=== PATIENT | female | born 1930 | race Caucasian/White ===

== ENCOUNTER 2016-08-15 17:20 | Inpatient (IN) | payer OTHER, MEDICAID ==
--- NOTE | 2016-08-15 17:19 | EDPHY ---
H & P Time Seen by Provider: 08/15/16 17:20 HPI/ROS: CHIEF COMPLAINT: Cough and weakness HISTORY OF PRESENT ILLNESS: Patient is at 3 weeks of cough which has become worse in the past couple of days associated with weakness and extreme fatigue. She has very mild shortness of breath but no chest pain. Associated with several days of watery diarrhea but no blood or melena. Cough is not better worse with anything. REVIEW OF SYSTEMS: Eye: no change in vision ENT: no sore throat Cardiac: no chest pain or syncope Pulmonary: HPI Abdomen: no vomiting, no abdominal pain, has had diarrhea Musculoskeletal: no back pain Skin: no rash Neuro: no headache Constitutional: no fever : Usually wears a diaper but was incontinent today which is unusual for her. A comprehensive 10 point review of systems is otherwise negative aside from elements mentioned in the history of present illness. PAST MEDICAL HISTORY: Includes hypertension, colon cancer, asthma Social history: Nonsmoker General Appearance: Alert and conversant, cooperative. Eyes: No scleral icterus. ENT, Mouth: Normal mucous membranes. Respiratory: Bilateral rhonchi wheezing and rales. Cardiovascular: Regular rate and rhythm. Gastrointestinal: Abdomen is soft and non tender. Neurological: Alert and oriented x3. Normally conversant. Face symmetric, normal movement and sensation in all extremities. Skin: Warm and dry, no rashes. Musculoskeletal: No peripheral edema and no joint swelling. No calf tenderness. Psychiatric: Not agitated. Emergency Department course/MDM: Chest x-ray, labs to include CBC and chemistries, influenza, sepsis screening , UA. 1818: Discussed results with patient and her daughter. Oral Tamiflu 75 mg and nebulizer. Admission for supportive care with hypoxemia and severe weakness. Does not meet SIRS criteria in the ED. Needs to be admitted for generalized weakness, hypoxemia. Constitutional: Initial Vital Signs Temperature (C) 36.6 C 08/15/16 17:27 Heart Rate 79 08/15/16 17:27 Respiratory Rate 16 08/15/16 17:27 Blood Pressure 102/64 08/15/16 17:27 O2 Sat (%) 90 L 08/15/16 17:27 O2 Delivery Mode Room Air Allergies/Adverse Reactions: aspirin Allergy (Verified 05/09/14 10:48) Penicillins Allergy (Verified 05/09/14 10:48) Home Medications: Medication Instructions Recorded Acetaminophen [Tylenol ES 500 mg 1,000 mg PO BID 11/02/15 (*)] Cholecalciferol Vit D3 [Vitamin D3 2,000 units PO BID 11/02/15 (*)] Cholestyramine (with Sugar) 4 gm PO DAILY 11/02/15 [Cholestyramine Packet] Cromolyn Sodium [Nasalcrom] 1 spray EACHNARE BID PRN 11/02/15 Denosumab [Prolia] 60 mg SQ Q180D 11/02/15 Diclofenac Sodium [Voltaren Gel 1 montrell TP HS PRN 11/02/15 (*)] Fluticasone Hfa 44 Mcg [Flovent 44 2 puffs IH BID 11/02/15 MCG Hfa MDI (*)] Lisinopril [Zestril 10 mg (*)] 10 mg PO DAILY 11/02/15 Triamterene/Hydrochlorothiazid 1 each PO DAILY 11/02/15 [Triamterene-Hctz 37.5-25 mg Cp] Vit C/Zeferino AC/Lut/Copper/Znox 1 each PO BID 11/02/15 [Preservision Lutein Softgel] Famotidine [Pepcid 20 MG (*)] 20 mg PO BID #60 tab 11/04/15 Metformin HCl 250 mg PO DAILY 08/15/16 Medical Decision Making - Diagnostics EKG Interpretation: 12-lead EKG interpreted by me; official reading is in trace master. My interpretation is sinus rhythm with PAC and a right bundle branch block. Imaging: Chest x-ray reviewed with Chauncey at 1757 is negative for pneumonia Differential Diagnosis: Differential for cough and shortness of breath considered including but not limited to influenza, pneumonia, bronchitis, CHF. Consult/Admit Bed Type: Dr. Kohler 1652 - Data Points Laboratory Results: Laboratory Results 08/15/16 17:40 08/15/16 17:40 08/15/16 08/15/16 08/15/16 17:45 17:40 17:40 WBC RBC Hgb Hct MCV MCH MCHC RDW Plt Count MPV Neut % (Auto) Lymph % (Auto) Beckham % (Auto) Eos % (Auto) Baso % (Auto) Nucleat RBC Rel Count Absolute Neuts (auto) Absolute Lymphs (auto) Absolute Monos (auto) Absolute Eos (auto) Absolute Basos (auto) Absolute Nucleated RBC Immature Gran % Immature Gran # PT 13.3 SEC SEC (12.0-15.0) INR 1.02 (0.83-1.16) APTT 26.9 SEC SEC (23.0-38.0) VBG Lactic Acid Sodium 133 mEq/L L mEq/L (134-144) Potassium 3.9 mEq/L mEq/L (3.5-5.2) Chloride 99 mEq/L mEq/L (97-110) Carbon Dioxide 22 mEq/l mEq/l (22-31) Anion Gap 12 mEq/L mEq/L (8-16) BUN 29 mg/dL H mg/dL (7-23) Creatinine 1.2 mg/dL H mg/dL (0.6-1.0) Estimated GFR 43 Glucose 141 mg/dL H mg/dL (70-100) Calcium 8.7 mg/dL mg/dL (8.5-10.4) Total Bilirubin 0.6 mg/dL mg/dL (0.1-1.4) Influenza Typ A,B (DFA) POSITIVE FOR FLU A H (NEGATIVE) 08/15/16 08/15/16 17:40 17:40 WBC 6.11 10^3/uL 10^3/uL (3.80-9.50) RBC 4.11 10^6/uL L 10^6/uL (4.18-5.33) Hgb 13.5 g/dL g/dL (12.6-16.3) Hct 40.9 % % (38.0-47.0) MCV 99.5 fL fL (81.5-99.8) MCH 32.8 pg pg (27.9-34.1) MCHC 33.0 g/dL g/dL (32.4-36.7) RDW 11.9 % % (11.5-15.2) Plt Count 167 10^3/uL 10^3/uL (150-400) MPV 9.4 fL fL (8.7-11.7) Neut % (Auto) 69.6 % % (39.3-74.2) Lymph % (Auto) 20.0 % % (15.0-45.0) Beckham % (Auto) 9.2 % % (4.5-13.0) Eos % (Auto) 0.5 % L % (0.6-7.6) Baso % (Auto) 0.2 % L % (0.3-1.7) Nucleat RBC Rel Count 0.0 % % (0.0-0.2) Absolute Neuts (auto) 4.26 10^3/uL 10^3/uL (1.70-6.50) Absolute Lymphs (auto) 1.22 10^3/uL 10^3/uL (1.00-3.00) Absolute Monos (auto) 0.56 10^3/uL 10^3/uL (0.30-0.80) Absolute Eos (auto) 0.03 10^3/uL 10^3/uL (0.03-0.40) Absolute Basos (auto) 0.01 10^3/uL L 10^3/uL (0.02-0.10) Absolute Nucleated RBC 0.00 10^3/uL 10^3/uL (0-0.01) Immature Gran % 0.5 % % (0.0-1.1) Immature Gran # 0.03 10^3/uL 10^3/uL (0.00-0.10) PT INR APTT VBG Lactic Acid 1.9 mmol/L mmol/L (0.7-2.1) Sodium Potassium Chloride Carbon Dioxide Anion Gap BUN Creatinine Estimated GFR Glucose Calcium Total Bilirubin Influenza Typ A,B (DFA) Medications Given: Discontinued Medications Albuterol (Proventil Neb) 3 ml IH EDNOW ONE Stop: 08/15/16 18:13 Last Admin: 08/15/16 18:51 Dose: 3 ml Sodium Chloride (Ns) 1,000 mls @ 0 mls/hr IV ONCE ONE PRN Reason: Wide Open Stop: 08/15/16 18:22 Last Admin: 08/15/16 18:36 Dose: 1,000 mls Oseltamivir Phosphate (Tamiflu) 75 mg PO EDNOW ONE Stop: 08/15/16 18:14 Last Admin: 08/15/16 18:36 Dose: 75 mg Departure - Departure Disposition: [facility] Acute Clinical Impression: Influenza, Hypoxemia Condition: Good
--- NOTE | 2016-08-15 17:58 | CPEKG ---
Heart Rate: 77 RR Interval: 779 P-R Interval: 176 QRSD Interval: 126 QT Interval: 412 QTC Interval: 467 P Cromwell: 45 QRS Cromwell: 73 T Wave Cromwell: -33 EKG Severity - ABNORMAL ECG - EKG Impression: SINUS RHYTHM EKG Impression: ATRIAL PREMATURE COMPLEX EKG Impression: RIGHT BUNDLE BRANCH BLOCK Electronically Signed By: Jesse Cardenas 15-Aug-2016 20:33:01
[2016-08-15 18:00] LABS: % IMMATURE GRANULYOCYTES 0.5 % (0.0-1.1); ABSOLUTE IMMATURE GRANULOCYTES 0.03 10^3/uL (0.00-0.10); ADD DIFF? NO; ADD MORPH? NO; ADD SCAN? NO; ATYPICAL LYMPHOCYTE FLAG 30 (0-99); FRAGMENT RBC FLAG 0 (0-99); HEMATOCRIT 40.9 % (38.0-47.0); HEMOGLOBIN 13.5 g/dL (12.6-16.3); LEFT SHIFT FLG 0 (0-99); LIPEMIA HEMOLYSIS FLAG 80 (0-99); MEAN CELL HEMOGLOBIN 32.8 pg (27.9-34.1); MEAN CELL VOLUME 99.5 fL (81.5-99.8); MEAN PLATELET VOLUME 9.4 fL (8.7-11.7); PLATELET CLUMPS FLAG 0 (0-99); PLATELET COUNT 167 10^3/uL (150-400); RED BLOOD CELL COUNT 4.11 10^6/uL (4.18-5.33); RED CELL DISTRIBUTION WIDTH 11.9 % (11.5-15.2)
[2016-08-15 18:04] LABS: INR 1.02 (0.83-1.16); PROTIME(PATIENT) 13.3 SEC (12.0-15.0)
[2016-08-15 18:05] LABS: APTT 26.9 SEC (23.0-38.0)
[2016-08-15] MEDS ORDERED: ALBUTEROL 3 ML DEYVIAL IH ONE (18:12)
[2016-08-15] MEDS ORDERED: OSELTAMIVIR PHOSPHATE 75 MG CAP PO ONE (18:13)
[2016-08-15 18:16] LABS: ANION GAP 12 mEq/L (8-16); BILIRUBIN,TOTAL 0.6 mg/dL (0.1-1.4); CALCIUM 8.7 mg/dL (8.5-10.4); CARBON DIOXIDE 22 mEq/l (22-31); CHLORIDE 99 mEq/L (97-110); CREATININE 1.2 mg/dL (0.6-1.0); GLOMERULAR FILTRATION RATE 43; GLUCOSE 141 mg/dL (70-100); POTASSIUM 3.9 mEq/L (3.5-5.2); SODIUM 133 mEq/L (134-144)
[2016-08-15] MEDS ORDERED: NS 1,000 ML IV ONE (18:21)
[2016-08-15] MEDS ORDERED: ONDANSETRON 4 MG/2 ML VIAL IVP PRN (21:27)
[2016-08-15] MEDS ORDERED: ONDANSETRON DISINTEGRATING 4 MG TAB PO PRN (21:27)
[2016-08-15] MEDS ORDERED: ALBUTEROL 3 ML DEYVIAL IH PRN (21:27)
[2016-08-15] MEDS: NS 1,000 ML IV SCH (22:10)
[2016-08-15] MEDS: FAMOTIDINE 20 MG TAB PO SCH (22:10)
[2016-08-15] MEDS: BENZONATATE 100 MG CAP PO PRN (22:10)
--- NOTE | 2016-08-15 22:10 | GHP ---
[f rep st] HISTORY AND PHYSICAL DATE OF ADMISSION: 08/15/2016 CHIEF COMPLAINT: Weakness and cough. HISTORY OF PRESENT ILLNESS: The patient is an 86-year-old female with a history of hypertension and asthma, who presents to the emergency department from [facility] report ing several weeks of cough and worsening weakness and fatigue over the past several days. She denie s chest pain. She endorses mild shortness of breath. Her cough is nonproductive, but quite bothers ome. She denies abdominal pain, but endorses watery diarrhea. There has been no hematochezia or me lanotic stools. She has had no documented fevers and denies chills. In the emergency department, rigo hilton was positive for influenza A, and she was found to be mildly hypoxemic. [facility] management. PAST MEDICAL HISTORY: 1. Hypertension. 2. History of left lower extremity DVT. 3. History of breast cancer. 4. History of colon cancer. MEDICATIONS: Please see [facility] for complete updated outpatient medication list. ALLERGIES: Aspirin and penicillin. FAMILY HISTORY: Reviewed and noncontributory. SOCIAL HISTORY: The patient lives in [facility]. She denies alcohol or tobacco use. REVIEW OF SYSTEMS: A 10-point review of systems was performed and is negative except as per HPI. OBJECTIVE: VITAL SIGNS: Temperature 36.9, blood pressure 123/51, heart rate 95, respiratory rate 2 0, sats are 91% on 2 L. GENERAL: The patient is awake, alert, oriented, in no acute distress. KATINA NT: Head is atraumatic, normocephalic. Pupils equal, round, react to light. Extraocular muscles i ntact. Oropharynx is clear. Mucous membranes moist. NECK: Supple. There is no JVD. HEART: Reg ular rate and rhythm. LUNGS: Clear to auscultation bilaterally without wheezes, rales, or rhonchi. ABDOMEN: Soft, nondistended, nontender, with normoactive bowel sounds. EXTREMITIES: Without cya nosis, clubbing, or edema. NEUROLOGIC: Grossly nonfocal. LABORATORY DATA: CBC reveals normal white blood cell count. INR is normal. Lactic acid is normal. Basic metabolic panel reveals sodium 133, BUN 29, creatinine 1.2. Blood glucose 141. Influenza A is positive. Chest x-ray from the emergency department, reviewed by myself. There was no evidence of infiltrate or consolidation. No pleural effusion. DIAGNOSTIC STUDIES: EKG shows normal sinus rhythm with a right bundle branch block which was also p resent on prior EKG. ASSESSMENT/PLAN: The patient is an 86-year-old female, who presents to the hospital with weakness, fatigue, and hypoxemia. She was found to be positive for influenza, was admitted to the hospital fo r further management. 1. 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 The chantelle ent will be admitted for supportive care including oxygen. She will be started on Tamiflu which is renally dosed at 30 mg p.o. b.i.d. We may need to increase this dose if her renal function improves after hydration. She will be given q.i.d. DuoNebs and p.r.n. albuterol nebs. I do not appreciate significant wheezing, so I will defer steroids at this time. She does appear volume depleted, so wi ll give her some gentle IV fluids overnight. 2. Acute kidney injury. I suspect this is likely prerenal given her acute illness. We will gently hydrate her overnight, recheck this in the morning. If it does not improve, we can send urine stud ies for further analysis at that time. 3. Hyponatremia. This is acute. She had a sodium of 140 in June 2016. Again, I suspect this is hypovolemic hyponatremia. She has been given normal saline. We will recheck this in the morning . 4. Diarrhea. Apparently, this has been present for several days. We will check a GI pathogen pane l to rule out Clostridium difficile and other infectious etiologies. 5. Deep vein thrombosis prophylaxis: Lovenox. 6. Code status: Patient is full code. 7. Disposition: Patient is admitted to inpatient status. She will likely require greater than 48 hours hospitalization for ongoing management of her acute influenza and associated hypoxemia. /[id number]/MODL
[2016-08-15] MEDS: FLUTICASONE HFA 44 MCG MDI IH SCH (23:01)
[2016-08-16] MEDS: ACETAMINOPHEN 325 MG TAB PO PRN ×2 (04:36→15:23)
[2016-08-16 06:03] LABS: ANION GAP 7 mEq/L (8-16); CALCIUM 7.6 mg/dL (8.5-10.4); CARBON DIOXIDE 20 mEq/l (22-31); CHLORIDE 105 mEq/L (97-110); CREATININE 0.9 mg/dL (0.6-1.0); GLOMERULAR FILTRATION RATE 59; GLUCOSE 129 mg/dL (70-100); POTASSIUM 3.3 mEq/L (3.5-5.2); SODIUM 132 mEq/L (134-144)
[2016-08-16] MEDS: IPRATROPIUM/ALBUTEROL 3 ML DEYVIAL IH SCH ×4 (06:30→21:43)
[2016-08-16] MEDS ORDERED: OSELTAMIVIR 6 MG/ML UDSYR PO SCH (08:00)
[2016-08-16] MEDS: FAMOTIDINE 20 MG TAB PO SCH ×2 (09:02→20:55)
[2016-08-16] MEDS: ENOXAPARIN 30 MG/0.3 ML SYR SC SCH (09:02)
[2016-08-16] MEDS: NS 1,000 ML IV SCH ×2 (09:03→19:00)
[2016-08-16] MEDS ORDERED: CROMOLYN SODIUM EACHNARE PRN (10:13)
[2016-08-16] MEDS ORDERED: DICLOFENAC SODIUM TP PRN (10:13)
[2016-08-16] MEDS ORDERED: NON-FORMULARY NEW DRUG (Denosumab [Prolia] 60 MG) SQ SCH (10:15)
[2016-08-16] MEDS: CHOLESTYRAMINE/SUCROSE 4 GM PKT PO SCH (10:26)
[2016-08-16 10:33] LABS: COLOR YELLOW; LEUKOCYTE ESTERASE,URINE NEGATIVE (NEGATIVE); NITRITE,URINE NEGATIVE (NEGATIVE)
[2016-08-16 10:41] LABS: BACTERIA 1+ /hpf (NONE SEEN); MUCUS TRACE /lpf (NONE-1+)
[2016-08-16] MEDS: FLUTICASONE HFA 44 MCG MDI IH SCH ×2 (11:00→21:42)
[2016-08-16] MEDS: BENZONATATE 100 MG CAP PO PRN ×2 (12:20→20:56)
--- NOTE | 2016-08-16 15:39 | HOSPPROG ---
Hospitalist Progress Note Assessment/Plan: 86-year-old female presents complaints of shortness of breath and cough. This is my 1st encounter with the patient, chart reviewed. # diarrhea this is acute on chronic problem for the patient re-initiated the patient's cholestyramine continue supportive care # flu continue supportive care #Acute hypoxemic respiratory failure improved today #Acute kidney injury resolved #Hyponatremia acute on chronic stable # hypokalemia Replace orally Recheck in the a.m. #Disposition patient requires further in-hospital on management supportive care reinitiate home medications Subjective: Up to the bathroom. Complains of significant diarrhea. No specific complaints of pain. Objective: Vital Signs Temp Pulse Resp BP Pulse Ox 37.7 C 88 18 101/58 L 92 08/16/16 06:00 08/16/16 11:01 08/16/16 11:01 08/16/16 04:29 08/16/16 11:01 Microbiology 08/16/16 10:50 Gastrointestinal Tract Panel (PCR) - Final Stool No Organism Detected Laboratory Results 08/16/16 05:28 08/15/16 08/16/16 08/17/16 05:59 05:59 05:59 Intake Total 800 Output Total 450 Balance 350 PT 13.3 SEC (12.0-15.0) 08/15/16 17:40 INR 1.02 (0.83-1.16) 08/15/16 17:40 - Physical Exam Constitutional: not in pain, chronically ill appearing, obese Eyes: PERRL, anicteric sclera, EOMI Ears, Nose, Mouth, Throat: moist mucous membranes, hearing normal, ears appear normal Cardiovascular: regular rate and rhythym, No JVD, No edema Respiratory: no respiratory distress, no rales or rhonchi, reduced air movement Gastrointestinal: No tenderness, No ascites, No guarding Skin: warm, normal color, No erythema Musculoskeletal: normal joint ROM, no joint effusions, generalized weakness Neurologic: AAOx3 Psychiatric: interacting appropriately, not anxious, not encephalopathic ICD10 Worksheet Patient Problems: Problems Problem Status Onset URI, acute Acute Hyponatremia Acute Influenza Acute Hypoxemia Acute
[2016-08-16] MEDS ORDERED: POTASSIUM CL 20 MEQ/15 ML UDCUP PO ONE (15:44)
[2016-08-16] MEDS: OSELTAMIVIR 6 MG/ML UDSYR PO SCH (18:14)
[2016-08-16] MEDS: PRESERVISION LUTEIN PO SCH (20:54)
[2016-08-16] MEDS: CHOLECALCIFEROL VIT D3 1,000 UNITS TAB PO SCH (20:55)
[2016-08-16] MEDS: ACETAMINOPHEN 500 MG TAB PO SCH (20:55)
[2016-08-17] MEDS: NS 1,000 ML IV SCH ×2 (04:29→16:42)
[2016-08-17 05:22] LABS: ANION GAP 5 mEq/L (8-16); CALCIUM 7.3 mg/dL (8.5-10.4); CARBON DIOXIDE 18 mEq/l (22-31); CHLORIDE 109 mEq/L (97-110); CREATININE 0.8 mg/dL (0.6-1.0); GLOMERULAR FILTRATION RATE > 60; GLUCOSE 152 mg/dL (70-100); POTASSIUM 3.5 mEq/L (3.5-5.2); SODIUM 132 mEq/L (134-144)
[2016-08-17] MEDS: IPRATROPIUM/ALBUTEROL 3 ML DEYVIAL IH SCH ×4 (06:20→21:45)
[2016-08-17] MEDS: ACETAMINOPHEN 500 MG TAB PO SCH ×2 (07:52→20:11)
[2016-08-17] MEDS: BENZONATATE 100 MG CAP PO PRN ×2 (07:52→16:36)
[2016-08-17 08:59] LABS: HEMATOCRIT 35.1 % (38.0-47.0); HEMOGLOBIN 11.8 g/dL (12.6-16.3); MEAN CELL HEMOGLOBIN CONCENTR. 33.6 g/dL (32.4-36.7); RED BLOOD CELL COUNT 3.58 10^6/uL (4.18-5.33); RED CELL DISTRIBUTION WIDTH 11.9 % (11.5-15.2)
[2016-08-17] MEDS ORDERED: TRIAMTERENE/HCTZ 37.5/25 1 EACH CAP PO SCH (09:00)
[2016-08-17] MEDS ORDERED: LISINOPRIL 10 MG TAB PO SCH (09:00)
[2016-08-17] MEDS: metFORMIN HCL 500 MG TAB PO SCH (10:05)
[2016-08-17] MEDS: CHOLECALCIFEROL VIT D3 1,000 UNITS TAB PO SCH ×2 (10:09→20:12)
[2016-08-17] MEDS: ENOXAPARIN 30 MG/0.3 ML SYR SC SCH (10:09)
[2016-08-17] MEDS: OSELTAMIVIR 6 MG/ML UDSYR PO SCH ×2 (10:09→18:07)
[2016-08-17] MEDS: FAMOTIDINE 20 MG TAB PO SCH ×2 (10:09→20:12)
[2016-08-17] MEDS: CHOLESTYRAMINE/SUCROSE 4 GM PKT PO SCH (10:12)
[2016-08-17] MEDS: FLUTICASONE HFA 44 MCG MDI IH SCH ×2 (10:53→21:46)
[2016-08-17 12:24] LABS: COLOR YELLOW; LEUKOCYTE ESTERASE,URINE NEGATIVE (NEGATIVE); NITRITE,URINE NEGATIVE (NEGATIVE)
[2016-08-17 12:29] LABS: BACTERIA TRACE /hpf (NONE SEEN)
[2016-08-17] MEDS: PRESERVISION LUTEIN PO SCH ×2 (12:44→20:12)
--- NOTE | 2016-08-17 14:59 | HOSPPROG ---
Hospitalist Progress Note Assessment/Plan: 86-year-old female presents complaints of shortness of breath and cough. # diarrhea this is acute on chronic problem for the patient re-initiated the patient's cholestyramine continue supportive care Better today # flu continue supportive care Still feeling weak and tired Complaints of cough #Acute hypoxemic respiratory failure improved today Continue supplemental oxygen #Acute kidney injury resolved #Hyponatremia acute on chronic stable # hypokalemia Stable #Disposition patient requires further in-hospital on management supportive care Possible discharge in the next 1-2 days if continues improvement Subjective: Feeling okay today however significantly weak and tired. Feels unable to safely be discharged home. Diarrhea has resolved with no other specific complaints. Objective: Vital Signs Temp Pulse Resp BP Pulse Ox 36.6 C 86 20 108/44 L 94 08/17/16 10:32 08/17/16 10:53 08/17/16 10:53 08/17/16 10:32 08/17/16 10:53 Microbiology 08/16/16 10:50 Gastrointestinal Tract Panel (PCR) - Final Stool No Organism Detected Laboratory Results 08/17/16 08:00 08/17/16 04:50 08/16/16 08/17/16 08/18/16 05:59 05:59 05:59 Intake Total 800 700 350 Output Total 450 400 Balance 350 700 -50 PT 13.3 SEC (12.0-15.0) 08/15/16 17:40 INR 1.02 (0.83-1.16) 08/15/16 17:40 - Physical Exam Constitutional: appears nourished, not in pain Eyes: PERRL, anicteric sclera Ears, Nose, Mouth, Throat: moist mucous membranes, hearing normal Cardiovascular: No JVD, No edema Respiratory: no respiratory distress, reduced air movement Gastrointestinal: No tenderness, No ascites Skin: warm, normal color Musculoskeletal: no joint effusions, generalized weakness Neurologic: AAOx3 Psychiatric: not anxious, not encephalopathic ICD10 Worksheet Patient Problems: Problems Problem Status Onset URI, acute Acute Hyponatremia Acute Influenza Acute Hypoxemia Acute
[2016-08-17] MEDS: guaiFENesin/CODEINE PHOS 10 ML UDCUP PO PRN (21:01)
[2016-08-18] MEDS: NS 1,000 ML IV SCH ×3 (01:03→19:08)
[2016-08-18] MEDS: BENZONATATE 100 MG CAP PO PRN (05:47)
[2016-08-18] MEDS: IPRATROPIUM/ALBUTEROL 3 ML DEYVIAL IH SCH ×4 (06:03→21:14)
[2016-08-18] MEDS: metFORMIN HCL 500 MG TAB PO SCH (08:09)
[2016-08-18] MEDS: FAMOTIDINE 20 MG TAB PO SCH ×2 (08:09→20:05)
[2016-08-18] MEDS: CHOLECALCIFEROL VIT D3 1,000 UNITS TAB PO SCH ×2 (08:10→20:05)
[2016-08-18] MEDS: ACETAMINOPHEN 500 MG TAB PO SCH ×2 (08:10→20:06)
[2016-08-18] MEDS: ENOXAPARIN 40 MG/0.4 ML SYR SC SCH (08:11)
[2016-08-18] MEDS: OSELTAMIVIR 6 MG/ML UDSYR PO SCH ×2 (08:13→17:34)
[2016-08-18] MEDS: PRESERVISION LUTEIN PO SCH ×2 (08:16→21:10)
[2016-08-18] MEDS: FLUTICASONE HFA 44 MCG MDI IH SCH ×2 (10:15→21:14)
[2016-08-18] MEDS: CHOLESTYRAMINE/SUCROSE 4 GM PKT PO SCH (10:47)
[2016-08-18] MEDS: guaiFENesin 600 MG TAB.ER PO SCH ×2 (11:10→20:05)
--- NOTE | 2016-08-18 13:19 | HOSPPROG ---
Hospitalist Progress Note Assessment/Plan: 86-year-old female presents complaints of shortness of breath and cough. # diarrhea this is acute on chronic problem for the patient re-initiated the patient's cholestyramine continue supportive care Better today # flu continue supportive care Still feeling weak and tired Complaints of cough #Acute hypoxemic respiratory failure improved today Continue supplemental oxygen Add Mucinex #Acute kidney injury resolved #Hyponatremia acute on chronic stable # hypokalemia Stable #Disposition patient requires further in-hospital on management supportive care Possible discharge in the next 1-2 days if continues improvement Subjective: Sitting up in the bed. Having significant coughing. No specific complaints of pain or other issues. Slept well last night. Objective: Vital Signs Temp Pulse Resp BP Pulse Ox 38.2 C 92 20 104/71 94 08/18/16 07:49 08/18/16 10:17 08/18/16 10:17 08/18/16 07:49 08/18/16 10:17 Laboratory Results 08/17/16 08:00 08/17/16 04:50 08/17/16 08/18/16 08/19/16 05:59 05:59 05:59 Intake Total 700 3092 Output Total 950 Balance 700 2142 PT 13.3 SEC (12.0-15.0) 08/15/16 17:40 INR 1.02 (0.83-1.16) 08/15/16 17:40 - Physical Exam Constitutional: appears nourished, chronically ill appearing Eyes: PERRL, anicteric sclera Ears, Nose, Mouth, Throat: moist mucous membranes, hearing normal Cardiovascular: regular rate and rhythym, No JVD Respiratory: no respiratory distress, reduced air movement Gastrointestinal: No tenderness, No ascites Skin: warm, normal color Musculoskeletal: normal joint ROM, generalized weakness Neurologic: AAOx3 Psychiatric: not anxious, not encephalopathic, thought process linear ICD10 Worksheet Patient Problems: Problems Problem Status Onset URI, acute Acute Hyponatremia Acute Influenza Acute Hypoxemia Acute
[2016-08-18] MEDS: guaiFENesin/CODEINE PHOS 10 ML UDCUP PO PRN ×2 (15:57→21:58)
[2016-08-18] MEDS: CALCIUM CARBONATE 500 MG CHEWABLE TAB PO PRN (20:06)
[2016-08-19] MEDS: guaiFENesin/CODEINE PHOS 10 ML UDCUP PO PRN (03:49)
[2016-08-19] MEDS: IPRATROPIUM/ALBUTEROL 3 ML DEYVIAL IH SCH ×4 (05:34→20:53)
[2016-08-19] MEDS: OSELTAMIVIR 6 MG/ML UDSYR PO SCH (08:43)
[2016-08-19] MEDS: CHOLECALCIFEROL VIT D3 1,000 UNITS TAB PO SCH ×2 (08:44→20:34)
[2016-08-19] MEDS: metFORMIN HCL 500 MG TAB PO SCH (08:44)
[2016-08-19] MEDS: ACETAMINOPHEN 500 MG TAB PO SCH ×2 (08:44→20:34)
[2016-08-19] MEDS: FAMOTIDINE 20 MG TAB PO SCH ×2 (08:44→20:33)
[2016-08-19] MEDS: guaiFENesin 600 MG TAB.ER PO SCH ×2 (08:45→20:34)
[2016-08-19] MEDS: ENOXAPARIN 40 MG/0.4 ML SYR SC SCH (08:45)
[2016-08-19] MEDS: CHOLESTYRAMINE/SUCROSE 4 GM PKT PO SCH (08:45)
[2016-08-19] MEDS: PRESERVISION LUTEIN PO SCH ×2 (08:48→20:33)
[2016-08-19] MEDS ORDERED: FAMOTIDINE 20 MG TAB PO SCH (09:00)
[2016-08-19] MEDS: FLUTICASONE HFA 44 MCG MDI IH SCH ×2 (10:38→20:53)
--- NOTE | 2016-08-19 12:37 | HOSPPROG ---
Hospitalist Progress Note Assessment/Plan: 86-year-old female presents complaints of shortness of breath and cough. # diarrhea this is acute on chronic problem for the patient re-initiated the patient's cholestyramine continue supportive care Better # flu continue supportive care Still feeling weak and tired Complaints of cough #Acute hypoxemic respiratory failure Continue supplemental oxygen Add Mucinex CXR possible PNA Pt slow to recover, add levaquin and follow #Acute kidney injury resolved #Hyponatremia acute on chronic stable # hypokalemia Stable #Disposition patient requires further in-hospital on management supportive care Possible discharge in the next 1-2 days if continues improvement Subjective: Still having a significant cough and congestion. Still feeling ill and weak. Not felling much improvement. Objective: Vital Signs Temp Pulse Resp BP Pulse Ox 36.9 C 93 24 H 121/61 H 95 08/19/16 08:00 08/19/16 10:39 08/19/16 08:00 08/19/16 08:00 08/19/16 10:39 Laboratory Results 08/17/16 08:00 08/17/16 04:50 08/18/16 08/19/16 08/20/16 05:59 05:59 05:59 Intake Total 3092 1950 Output Total 950 Balance 2142 1950 PT 13.3 SEC (12.0-15.0) 08/15/16 17:40 INR 1.02 (0.83-1.16) 08/15/16 17:40 - Physical Exam Constitutional: appears nourished, chronically ill appearing Eyes: PERRL, anicteric sclera Ears, Nose, Mouth, Throat: moist mucous membranes, hearing normal Cardiovascular: regular rate and rhythym, No JVD Respiratory: no respiratory distress, reduced air movement, expiratory wheeze Gastrointestinal: normoactive bowel sounds, No tenderness, No ascites Skin: warm, normal color, No erythema Musculoskeletal: normal joint ROM, no joint effusions, generalized weakness Neurologic: AAOx3 Psychiatric: not anxious, not encephalopathic, thought process linear ICD10 Worksheet Patient Problems: Problems Problem Status Onset URI, acute Acute Hyponatremia Acute Influenza Acute Hypoxemia Acute
[2016-08-19] MEDS: predniSONE 20 MG TAB PO SCH (13:08)
[2016-08-19] MEDS: NS 1,000 ML IV SCH (13:10)
[2016-08-19] MEDS: CALCIUM CARBONATE 500 MG CHEWABLE TAB PO PRN (18:46)
[2016-08-20] MEDS: NS 1,000 ML IV SCH (00:06)
[2016-08-20] MEDS: IPRATROPIUM/ALBUTEROL 3 ML DEYVIAL IH SCH ×4 (05:33→20:40)
[2016-08-20] MEDS: predniSONE 20 MG TAB PO SCH (08:29)
[2016-08-20] MEDS: CHOLECALCIFEROL VIT D3 1,000 UNITS TAB PO SCH ×2 (08:29→20:23)
[2016-08-20] MEDS: FAMOTIDINE 20 MG TAB PO SCH ×2 (08:30→20:23)
[2016-08-20] MEDS: guaiFENesin 600 MG TAB.ER PO SCH ×2 (08:30→20:22)
[2016-08-20] MEDS: ACETAMINOPHEN 500 MG TAB PO SCH ×2 (08:30→20:22)
[2016-08-20] MEDS: metFORMIN HCL 500 MG TAB PO SCH (08:32)
[2016-08-20] MEDS: ENOXAPARIN 40 MG/0.4 ML SYR SC SCH (08:33)
[2016-08-20] MEDS: CHOLESTYRAMINE/SUCROSE 4 GM PKT PO SCH (08:33)
[2016-08-20] MEDS: FLUTICASONE HFA 44 MCG MDI IH SCH ×2 (09:48→20:40)
[2016-08-20] MEDS: PRESERVISION LUTEIN PO SCH ×2 (10:08→20:23)
--- NOTE | 2016-08-20 12:06 | HOSPPROG ---
Hospitalist Progress Note Assessment/Plan: 86-year-old female presents complaints of shortness of breath and cough. # diarrhea this is acute on chronic problem for the patient re-initiated the patient's cholestyramine continue supportive care Better # flu continue supportive care Still feeling weak and tired Complaints of cough #Acute hypoxemic respiratory failure Continue supplemental oxygen Mucinex CXR possible PNA Pt slow to recover, add levaquin and prednisone improved today #Acute kidney injury resolved #Hyponatremia acute on chronic stable # hypokalemia Stable #Disposition patient requires further in-hospital on management supportive care Possible discharge in the next 1-2 days if continues improvement Subjective: Feeling better today. Still with significant cough. Feeling weak. Objective: Vital Signs Temp Pulse Resp BP Pulse Ox 36.5 C 92 20 114/70 95 08/20/16 07:40 08/20/16 07:40 08/20/16 07:40 08/20/16 07:40 08/20/16 07:40 Laboratory Results 08/17/16 08:00 08/17/16 04:50 08/19/16 08/20/16 08/21/16 05:59 05:59 05:59 Intake Total 1950 1529 Balance 1950 1529 PT 13.3 SEC (12.0-15.0) 08/15/16 17:40 INR 1.02 (0.83-1.16) 08/15/16 17:40 - Physical Exam Constitutional: appears nourished, not in pain Eyes: PERRL, anicteric sclera Ears, Nose, Mouth, Throat: moist mucous membranes, hearing normal Cardiovascular: No JVD, No edema Respiratory: expiratory wheeze, rhonchi Gastrointestinal: No tenderness, No ascites Skin: warm, normal color Musculoskeletal: no joint effusions, generalized weakness Neurologic: AAOx3 Psychiatric: not anxious, not encephalopathic, thought process linear ICD10 Worksheet Patient Problems: Problems Problem Status Onset URI, acute Acute Hyponatremia Acute Influenza Acute Hypoxemia Acute
[2016-08-20 23:14] VITALS: RESP 18; TEMP 98.1
[2016-08-21] MEDS: BENZONATATE 100 MG CAP PO PRN (02:11)
[2016-08-21] MEDS: CALCIUM CARBONATE 500 MG CHEWABLE TAB PO PRN (02:11)
[2016-08-21] MEDS: IPRATROPIUM/ALBUTEROL 3 ML DEYVIAL IH SCH ×2 (04:53→10:56)
[2016-08-21 07:45] VITALS: BP 135/68; PULSE 88
--- NOTE | 2016-08-21 09:57 | HOSPPROG ---
Hospitalist Progress Note Assessment/Plan: 86-year-old female presents complaints of shortness of breath and cough. Today is my first encounter with the patient, chart reviewed. # diarrhea/acute on chronic * cholestyramine restarted * had one bowel movement yesterday # Influenza * continue supportive care #Acute hypoxemic respiratory failure * resolved/ O2 sats on room air are 94% #. Concern for poss pna * improved w Levaquin and steroids * cont for a few more days * cont Mucinex/ Robitussin #Acute kidney injury * resolved #Hyponatremia * most recent Na is 132 # hypokalemia Stable #Disposition: back to [facility]/ evaluated by PT and OT/ recommended her returning to [facility]/ I spoke with her daughter who will pick her up later today around 14:00 Subjective: Ashli is feeling fine/ has ongoing cough. Objective: Vital Signs Temp Pulse Resp BP Pulse Ox 36.7 C 88 18 135/68 H 94 08/21/16 07:42 08/21/16 07:42 08/21/16 07:42 08/21/16 07:42 08/21/16 07:42 Laboratory Results 08/17/16 08:00 08/17/16 04:50 08/20/16 08/21/16 08/22/16 05:59 05:59 05:59 Intake Total 1529 1750 Balance 1529 1750 PT 13.3 SEC (12.0-15.0) 08/15/16 17:40 INR 1.02 (0.83-1.16) 08/15/16 17:40 - Physical Exam Constitutional: no apparent distress, appears nourished, not in pain Eyes: PERRL Ears, Nose, Mouth, Throat: hearing normal Cardiovascular: regular rate and rhythym Respiratory: no respiratory distress, reduced air movement, other (loose cough) Gastrointestinal: normoactive bowel sounds Skin: warm Musculoskeletal: generalized weakness Neurologic: AAOx3 Psychiatric: interacting appropriately, not anxious ICD10 Worksheet Patient Problems: Problems Problem Status Onset Hypoxemia Acute Influenza Acute Hyponatremia Acute URI, acute Acute
[2016-08-21] MEDS: ACETAMINOPHEN 500 MG TAB PO SCH (10:10)
[2016-08-21] MEDS: CHOLECALCIFEROL VIT D3 1,000 UNITS TAB PO SCH (10:11)
[2016-08-21] MEDS: CHOLESTYRAMINE/SUCROSE 4 GM PKT PO SCH (10:11)
[2016-08-21] MEDS: ENOXAPARIN 40 MG/0.4 ML SYR SC SCH (10:12)
[2016-08-21] MEDS: guaiFENesin 600 MG TAB.ER PO SCH (10:12)
[2016-08-21] MEDS: FAMOTIDINE 20 MG TAB PO SCH (10:12)
[2016-08-21] MEDS: predniSONE 20 MG TAB PO SCH (10:13)
[2016-08-21] MEDS: PRESERVISION LUTEIN PO SCH (10:13)
[2016-08-21] MEDS: metFORMIN HCL 500 MG TAB PO SCH (10:13)
[2016-08-21] MEDS: FLUTICASONE HFA 44 MCG MDI IH SCH (10:57)
[2016-08-21 11:03] VITALS: O2SAT 93
[2016-08-21 13:10] LABS: ANION GAP 12 mEq/L (8-16); CALCIUM 8.1 mg/dL (8.5-10.4); CARBON DIOXIDE 19 mEq/l (22-31); CHLORIDE 110 mEq/L (97-110); GLOMERULAR FILTRATION RATE 53; GLUCOSE 151 mg/dL (70-100); POTASSIUM 4.3 mEq/L (3.5-5.2); SODIUM 141 mEq/L (134-144)
--- NOTE | 2016-08-21 15:35 | GDS ---
[f rep st] DISCHARGE SUMMARY DISCHARGE DIAGNOSES: 1. Diarrhea acute on chronic. 2. Influenza. 3. Acute hypoxemic respiratory failure. 4. Concern for possible pneumonia. 5. Acute kidney injury. 6. Hyponatremia. 7. Hypokalemia. BRIEF HISTORY: The patient is a very sweet, 86-year-old female, who has a history of hypertension, asthma, who had several weeks of cough and worsening weakness and fatigue. In the emergency department, it was noted that she had influenza A. She was treated for this. She was also seen by Physical Therapy and Occupational Therapy for ongoing weakness. She is back to her baseline with mobility. She will be discharged back home to her assisted living today. HOSPITAL COURSE PER PROBLEM: 1. Diarrhea acute on chronic, resolved. 2. Influenza. Symptoms much improved. 3. Acute hypoxemic respiratory failure, resolved. 4. Concern for a possible pneumonia. She was started on Levaquin and steroids with significant improvement. Will continue this. 5. Acute kidney injury, resolved. 6. Hyponatremia. Most recent sodium is 141. 7. Hypokalemia, resolved. PENDING LABS AND TESTS: None. CONDITION AT DISCHARGE: Stable. Blood pressure is 135/68, heart rate is 88, respiratory rate is 18, O2 sats on room air 92%, temperature is 36.7 Celsius. MEDICATIONS AT DISCHARGE: Please see the EMR. DISCHARGE INSTRUCTIONS: 1. Recommending to hold her diuretic when she has episodes of diarrhea. 2. Take Levaquin as prescribed. 3. To follow up with her primary care provider and get a repeat chest x-ray in 6 weeks. Greater than 30 minutes discharging and coordinating care. /[id number]/MODL MTDD
== END 2016-08-21 15:11 | DRG 193 ==
LOC: EDUNIT# → F3E 20:14
PROVIDERS: ADMIT Hospitalist; ATTEND Hospitalist
DX: J10.00 Influenza due to other identified influenza virus with unspecified type of pneumonia (principal); J96.01 Acute respiratory failure with hypoxia; E87.1 Hypo-osmolality and hyponatremia; N17.9 Acute kidney failure, unspecified; K52.9 Noninfective gastroenteritis and colitis, unspecified; E87.6 Hypokalemia; I10 Essential (primary) hypertension; J45.909 Unspecified asthma, uncomplicated; Z88.0 Allergy status to penicillin; Z86.718 Personal history of other venous thrombosis and embolism; Z85.3 Personal history of malignant neoplasm of breast
CPT/HCPCS: 97161-GP; 97165-GO; G8978-GP-CI; G8979-GP-CI; G8980-GP-CI; G8987-GO-CI; G8988-GO-CI; G8989-GO-CI; J1650

== ENCOUNTER 2016-08-26 10:03 | Emergency (ER) | payer OTHER, MEDICAID ==
[2016-08-26 10:19] VITALS: RESP 18
--- NOTE | 2016-08-26 10:41 | EDPHY ---
H & P Stated Complaint: bilat leg edema, right leg "giving out " since yesterday, no trauma Time Seen by Provider: 08/26/16 10:29 HPI/ROS: CHIEF COMPLAINT: Weakness, leg swelling HISTORY OF PRESENT ILLNESS: The patient is an 86 y/o female, with a recent admission for weakness and cough, complaining of leg weakness and leg swelling for the last 2-3 days. She was admitted on 08/15/16 for 6 days for influenza A, pneumonia, and weakness, and discharged on Levaquin and Prednisone. Her diuretic was withheld during her admission due to diarrhea, but she tells me she has been taking her Lasix since Sunday, 3 days ago, with no improvement in her leg swelling. She completed the Levaquin yesterday. She reports her right leg "gives out" for the last 2-3 days. She says last night she couldn't get into bed because "I couldn't lift my feet up into bed," which she attributes to her BGL being in the 200s. She is afraid she will fall. Her friend is also concerned about the patient being able to walk between her bed and the bathroom alone. The patient does not use anticoagulants or aspirin. REVIEW OF SYSTEMS: Constitutional: No fever, no chills Eyes: No visual changes ENT: No sore throat Respiratory: see HPI Cardiac: No chest pain Gastrointestinal: No nausea, no vomiting, no abdominal pain Genitourinary: No hematuria, no dysuria Musculoskeletal: see HPI Skin: No rash Neurological: see HPI Psychiatric: No depression - Personal History Current Tetanus/Diphtheria Vaccine: Unsure Current Tetanus Diphtheria and Acellular Pertussis (TDAP): Unsure - Medical/Surgical History PMH: PMH includes: 1. Hypertension 2. DVT 3. Hx of breast cancer 4. Hx of colon cancer 5. Irregular heart beat not on anticoagulants. Prior medical records reviewed including 6-day admission on 08/15/16. Hx Asthma: Yes Hx Chronic Respiratory Disease: No Hx Diabetes: Yes Hx Cardiac Disease: No Hx Renal Disease: No Hx Cirrhosis: No Hx Alcoholism: No Hx HIV/AIDS: No Hx Splenectomy or Spleen Trauma: No Other PMH: uterus/colon cancer/blood clot L leg/htn/hysterectomy, macular degeneration. osteoarthritis, osteoporosis. asthma, diabetes type II, - Social History Smoking Status: Former smoker Additional Social History: Lives in [facility]. Friend at bedside. PCP: Dr. Bruno - Physical Exam Exam: General Appearance: Alert, no distress, coughing Eyes: Pupils equal and round, no conjunctival pallor or injection ENT, Mouth: Mucous membranes moist Neck: Normal inspection Respiratory: Lungs are clear to auscultation Cardiovascular: Regular rate and rhythm Gastrointestinal: Abdomen is soft and non- tender Neurological: A&O, nonfocal, normal gait, weakness bilateral in lower extremities Skin: Warm and dry, no rash Extremities: Nontender, 1+ bilateral pitting pedal edema Psychiatric: Mood and affect normal Constitutional: Initial Vital Signs Temperature (C) 36.4 C 08/26/16 10:16 Heart Rate 111 H 08/26/16 10:16 Respiratory Rate 18 08/26/16 10:16 Blood Pressure 153/118 H 08/26/16 10:16 O2 Sat (%) 93 08/26/16 10:16 O2 Delivery Mode Room Air Allergies/Adverse Reactions: aspirin Allergy (Verified 05/09/14 10:48) Penicillins Allergy (Verified 05/09/14 10:48) Home Medications: Medication Instructions Recorded Acetaminophen [Tylenol ES 500 mg 1,000 mg PO BID 11/02/15 (*)] Cholecalciferol Vit D3 [Vitamin D3 2,000 units PO BID 11/02/15 (*)] Cholestyramine (with Sugar) 4 gm PO DAILY 11/02/15 [Cholestyramine Packet] Cromolyn Sodium [Nasalcrom] 1 spray EACHNARE BID PRN 11/02/15 Denosumab [Prolia] 60 mg SQ Q180D 11/02/15 Diclofenac Sodium [Voltaren Gel 1 montrell TP HS PRN 11/02/15 (*)] Fluticasone Hfa 44 Mcg [Flovent 44 2 puffs IH BID 11/02/15 MCG Hfa MDI (*)] Lisinopril [Zestril 10 mg (*)] 10 mg PO DAILY 11/02/15 Triamterene/Hydrochlorothiazid 1 each PO DAILY 11/02/15 [Triamterene-Hctz 37.5-25 mg Cp] Vit C/Zeferino AC/Lut/Copper/Znox 1 each PO BID 11/02/15 [Preservision Lutein Softgel] Famotidine [Pepcid 20 MG (*)] 20 mg PO BID #60 tab 11/04/15 Metformin HCl 250 mg PO DAILY 08/15/16 Benzonatate [Tessalon Pearles] 100 mg PO TID PRN #21 cap 08/21/16 levOFLOXACIN [levAQUIN (*)] 750 mg PO DAILY AT 10AM #4 tab 08/21/16 predniSONE 20 mg PO DAILY #5 tablet 08/21/16 Medical Decision Making ED Course/Re-evaluation: IV established. Labs drawn including CBC, CHEM, BNP. 20mg IV Lasix administered for pedal edema. Patient placed on cardiac cath rn and chest x-ray ordered. 1100: RN informs me she went to assist patient during ambulation and she was able to get out of bed and walk with a walker without assistance. She informed the RN she was told by her doctor to keep her legs up, so she sits in her chair all day instead of walking. The pt states that she feels fine because her blood sugar is under control. Given that her respiratory symptoms have resolved does bronchospasm, will discontinue the prednisone. Prednisone is most likely causing her blood sugars to be somewhat out control and making her feel weak. Feel that she is safe and stable for discharge. She is able to ambulate with a steady gait. There is no evidence of pneumonia. The 12 lead EKG was interpreted by myself. EKG shows sinus rhythm rate 94 with incomplete right bundle branch block. See hard copy and/or "tracemaster" electronic copy for interpretation. Study: Chest x-ray Indication: weakness Results: Chest x-ray was obtained. The results of the study are improved from chest series 7 days ago. Small basilar effusions. The study was read by the radiologist, Dr. Kendrick. I viewed the images myself on the PACS system. Differential Diagnosis: Differential diagnosis includes does not limited to pneumonia, electrolyte abnormality, hyperglycemia, pulmonary edema - Data Points Laboratory Results: Laboratory Results 08/26/16 10:35 08/26/16 10:35 Medications Given: Discontinued Medications Furosemide (Lasix Injection) 20 mg IVP EDNOW ONE Stop: 08/26/16 10:57 Last Admin: 08/26/16 11:30 Dose: 20 mg Departure - Departure Disposition: Home, Routine, Self-Care Clinical Impression: Generalized weakness Leg edema Qualifiers: Laterality: bilateral Qualified Code(s): R60.0 - Localized edema Condition: Good Instructions: Leg Edema (ED), Weakness (ED) Additional Instructions: 1. Take your diuretic as prescribed. 2. Discontinue the prednisone (steroid). 3. Wear compression stockings. 4. Walk regularly with your walker to improve circulation in your legs. 5. Follow up with your primary care provider on Sunday for symptoms not improved. 6. Return to the ED for chest pain, shortness of breath, uncontrollable fever, or other worsening of condition. Referrals: Dorothea Cedillo MD [Primary Care Provider] - As per Instructions Report Scribed for: Jasmin Rudd Report Scribed by: Jesenia Pratt Date of Report: 08/26/16 Time of Report: 10:43 Physician Review and Approval Statement: 08/26/16 10:43 Portions of this note were transcribed by a medical malpractice paralegal. I personally performed a history, physical exam, medical decision making, and confirmed accuracy of information the transcribed note.
[2016-08-26] MEDS ORDERED: FUROSEMIDE 20 MG/2 ML VIAL IVP ONE (10:56)
[2016-08-26 11:00] LABS: % IMMATURE GRANULYOCYTES 0.4 % (0.0-1.1); ABSOLUTE IMMATURE GRANULOCYTES 0.05 10^3/uL (0.00-0.10); ADD DIFF? NO; ADD MORPH? NO; ADD SCAN? NO; ATYPICAL LYMPHOCYTE FLAG 20 (0-99); FRAGMENT RBC FLAG 0 (0-99); HEMATOCRIT 40.7 % (38.0-47.0); HEMOGLOBIN 14.1 g/dL (12.6-16.3); LEFT SHIFT FLG 0 (0-99); LIPEMIA HEMOLYSIS FLAG 90 (0-99); MEAN CELL HEMOGLOBIN 32.6 pg (27.9-34.1); MEAN CELL HEMOGLOBIN CONCENTR. 34.6 g/dL (32.4-36.7); MEAN PLATELET VOLUME 8.7 fL (8.7-11.7); PLATELET CLUMPS FLAG 0 (0-99); PLATELET COUNT 465 10^3/uL (150-400); RED BLOOD CELL COUNT 4.33 10^6/uL (4.18-5.33); RED CELL DISTRIBUTION WIDTH 12.6 % (11.5-15.2)
[2016-08-26 11:05] LABS: ANION GAP 14 mEq/L (8-16); CARBON DIOXIDE 19 mEq/l (22-31); CHLORIDE 106 mEq/L (97-110); CREATININE 1.1 mg/dL (0.6-1.0); GLOMERULAR FILTRATION RATE 47; GLUCOSE 109 mg/dL (70-100); POTASSIUM 4.2 mEq/L (3.5-5.2); SODIUM 139 mEq/L (134-144)
--- NOTE | 2016-08-26 11:24 | CPEKG ---
Heart Rate: 94 RR Interval: 638 P-R Interval: 143 QRSD Interval: 112 QT Interval: 360 QTC Interval: 451 P [place]: 81 QRS [place]: 69 T Wave [place]: -27 EKG Severity - ABNORMAL ECG - EKG Impression: SINUS RHYTHM EKG Impression: INCOMPLETE RIGHT BUNDLE BRANCH BLOCK Electronically Signed By: Jasmin Rudd 27-Aug-2016 15:35:27
--- NOTE | 2016-08-26 12:08 | EDPHY ---
H & P Stated Complaint: bilat leg edema, right leg "giving out " since yesterday, no trauma Time Seen by Provider: 08/26/16 10:29 HPI/ROS: CHIEF COMPLAINT: HISTORY OF PRESENT ILLNESS: REVIEW OF SYSTEMS: Constitutional: No fever, no chills Eyes: No visual changes ENT: No sore throat Respiratory: No cough, no shortness of breath Cardiac: No chest pain Gastrointestinal: No nausea, no vomiting, no abdominal pain Genitourinary: No hematuria, no dysuria Musculoskeletal: No leg pain or swelling Skin: No rash Neurological: No headache, no numbness, no weakness Psychiatric: No depression General Appearance: Alert, no distress Eyes: Pupils equal and round, no conjunctival pallor or injection ENT, Mouth: Mucous membranes moist Neck: Normal inspection Respiratory: Lungs are clear to auscultation Cardiovascular: Regular rate and rhythm Gastrointestinal: Abdomen is soft and non- tender Neurological: A&O, nonfocal, normal gait Skin: Warm and dry, no rash Extremities: Nontender, no pedal edema Psychiatric: Mood and affect normal - Personal History Current Tetanus/Diphtheria Vaccine: Unsure Current Tetanus Diphtheria and Acellular Pertussis (TDAP): Unsure - Medical/Surgical History Hx Asthma: Yes Hx Chronic Respiratory Disease: No Hx Diabetes: Yes Hx Cardiac Disease: No Hx Renal Disease: No Hx Cirrhosis: No Hx Alcoholism: No Hx HIV/AIDS: No Hx Splenectomy or Spleen Trauma: No Other PMH: uterus/colon cancer/blood clot L leg/htn/hysterectomy, macular degeneration. osteoarthritis, osteoporosis. asthma, diabetes type II, - Social History Smoking Status: Former smoker Constitutional: Initial Vital Signs Temperature (C) 36.4 C 08/26/16 10:16 Heart Rate 111 H 08/26/16 10:16 Respiratory Rate 18 08/26/16 10:16 Blood Pressure 153/118 H 08/26/16 10:16 O2 Sat (%) 93 08/26/16 10:16 O2 Delivery Mode Room Air Allergies/Adverse Reactions: aspirin Allergy (Verified 05/09/14 10:48) Penicillins Allergy (Verified 05/09/14 10:48) Home Medications: Medication Instructions Recorded Acetaminophen [Tylenol ES 500 mg 1,000 mg PO BID 11/02/15 (*)] Cholecalciferol Vit D3 [Vitamin D3 2,000 units PO BID 11/02/15 (*)] Cholestyramine (with Sugar) 4 gm PO DAILY 11/02/15 [Cholestyramine Packet] Cromolyn Sodium [Nasalcrom] 1 spray EACHNARE BID PRN 11/02/15 Denosumab [Prolia] 60 mg SQ Q180D 11/02/15 Diclofenac Sodium [Voltaren Gel 1 montrell TP HS PRN 11/02/15 (*)] Fluticasone Hfa 44 Mcg [Flovent 44 2 puffs IH BID 11/02/15 MCG Hfa MDI (*)] Lisinopril [Zestril 10 mg (*)] 10 mg PO DAILY 11/02/15 Triamterene/Hydrochlorothiazid 1 each PO DAILY 11/02/15 [Triamterene-Hctz 37.5-25 mg Cp] Vit C/Zeferino AC/Lut/Copper/Znox 1 each PO BID 11/02/15 [Preservision Lutein Softgel] Famotidine [Pepcid 20 MG (*)] 20 mg PO BID #60 tab 11/04/15 Metformin HCl 250 mg PO DAILY 08/15/16 Benzonatate [Tessalon Pearles] 100 mg PO TID PRN #21 cap 08/21/16 levOFLOXACIN [levAQUIN (*)] 750 mg PO DAILY AT 10AM #4 tab 08/21/16 predniSONE 20 mg PO DAILY #5 tablet 08/21/16 Medical Decision Making - Data Points Laboratory Results: Laboratory Results 08/26/16 10:35 08/26/16 10:35 08/26/16 08/26/16 10:35 10:35 WBC 11.23 10^3/uL H 10^3/uL (3.80-9.50) RBC 4.33 10^6/uL 10^6/uL (4.18-5.33) Hgb 14.1 g/dL g/dL (12.6-16.3) Hct 40.7 % % (38.0-47.0) MCV 94.0 fL fL (81.5-99.8) MCH 32.6 pg pg (27.9-34.1) MCHC 34.6 g/dL g/dL (32.4-36.7) RDW 12.6 % % (11.5-15.2) Plt Count 465 10^3/uL H 10^3/uL (150-400) MPV 8.7 fL fL (8.7-11.7) Neut % (Auto) 73.4 % % (39.3-74.2) Lymph % (Auto) 18.1 % % (15.0-45.0) [place] % (Auto) 7.5 % % (4.5-13.0) Eos % (Auto) 0.4 % L % (0.6-7.6) Baso % (Auto) 0.2 % L % (0.3-1.7) Nucleat RBC Rel Count 0.0 % % (0.0-0.2) Absolute Neuts (auto) 8.25 10^3/uL H 10^3/uL (1.70-6.50) Absolute Lymphs (auto) 2.03 10^3/uL 10^3/uL (1.00-3.00) Absolute Monos (auto) 0.84 10^3/uL H 10^3/uL (0.30-0.80) Absolute Eos (auto) 0.04 10^3/uL 10^3/uL (0.03-0.40) Absolute Basos (auto) 0.02 10^3/uL 10^3/uL (0.02-0.10) Absolute Nucleated RBC 0.00 10^3/uL 10^3/uL (0-0.01) Immature Gran % 0.4 % % (0.0-1.1) Immature Gran # 0.05 10^3/uL 10^3/uL (0.00-0.10) Sodium 139 mEq/L mEq/L (134-144) Potassium 4.2 mEq/L mEq/L (3.5-5.2) Chloride 106 mEq/L mEq/L (97-110) Carbon Dioxide 19 mEq/l L mEq/l (22-31) Anion Gap 14 mEq/L mEq/L (8-16) BUN 19 mg/dL mg/dL (7-23) Creatinine 1.1 mg/dL H mg/dL (0.6-1.0) Estimated GFR 47 Glucose 109 mg/dL H mg/dL (70-100) Calcium 10.0 mg/dL mg/dL (8.5-10.4) NT-Pro-B Natriuret Pep 4950 pg/mL H pg/mL (0-450) Medications Given: Discontinued Medications Furosemide (Lasix Injection) 20 mg IVP EDNOW ONE Stop: 08/26/16 10:57 Last Admin: 08/26/16 11:30 Dose: 20 mg Departure - Departure Disposition: Home, Routine, Self-Care Clinical Impression: Generalized weakness Leg edema Qualifiers: Laterality: bilateral Qualified Code(s): R60.0 - Localized edema Condition: Good Instructions: Leg Edema (ED), Weakness (ED) Additional Instructions: 1. Take your diuretic as prescribed. 2. Discontinue the prednisone (steroid). 3. Wear compression stockings. 4. Walk regularly with your walker to improve circulation in your legs. 5. Follow up with your primary care provider on Sunday for symptoms not improved. 6. Return to the ED for chest pain, shortness of breath, uncontrollable fever, or other worsening of condition. Referrals: Dorothea Cedillo MD [Primary Care Provider] - As per Instructions Report Scribed for: Jasmin Rudd Report Scribed by: Jesenia Pratt Date of Report: 08/26/16 Time of Report: 12:09 Physician Review and Approval Statement: 08/26/16 12:09 Portions of this note were transcribed by a medical instrument cable fabricator. I personally performed a history, physical exam, medical decision making, and confirmed accuracy of information the transcribed note.
[2016-08-26 12:58] VITALS: BP 152/89; PULSE 70; TEMP 98.6; O2SAT 93
== END 2016-08-26 12:54 | disposition home or self-care (01) ==
DX: R53.1 Weakness (principal); R60.0 Localized edema; I10 Essential (primary) hypertension; E11.9 Type 2 diabetes mellitus without complications; J45.909 Unspecified asthma, uncomplicated; Z85.3 Personal history of malignant neoplasm of breast; Z87.891 Personal history of nicotine dependence; Z85.038 Personal history of other malignant neoplasm of large intestine
CPT/HCPCS: 96374

== ENCOUNTER 2017-02-27 15:26 | Emergency (ER) | payer OTHER, MEDICAID ==
--- NOTE | 2017-02-27 15:36 | EDPHY ---
H & P HPI/ROS: CHIEF COMPLAINT: Head laceration HISTORY OF PRESENT ILLNESS: 87 year old female arriving via EMS from [facility] presenting with a head laceration. She sustained during a witnessed mechanical fall shortly prior to arrival. She slipped backwards in gravel and fell, striking the back of her head. She denies headache and loss of consciousness and remembers the entire incident. She endorses left lateral neck pain, but no midline pain. She denies other injuries. REVIEW OF SYSTEMS: A 10 point review of systems was performed and is negative with the exception of the elements mentioned in the history of present illness. - Medical/Surgical History PMH: Heart problems, Hypertension, Arthritis, Macular degeneration, Diabetes, Asthma , Cancer - Social History Additional Social History: Lives at [facility]. Retired. - Physical Exam Exam: General Appearance: Alert, no distress Eyes: Pupils equal and round, no conjunctival pallor or injection ENT, Mouth: Mucous membranes moist Neck: Tenderness to left lateral aspect. No midline tenderness. Full ROM. Respiratory: Lungs are clear to auscultation Cardiovascular: Regular rate and rhythm Gastrointestinal: Abdomen is soft and non- tender Neurological: A&O, nonfocal, normal gait Skin: 2mm laceration to posterior scalp. Small abrasion to third digit of right hand. Warm and dry, no rash Extremities: Nontender, no pedal edema Psychiatric: Mood and affect normal Constitutional: Initial Vital Signs Temperature (C) 36.7 C 02/27/17 15:34 Heart Rate 91 02/27/17 15:34 Respiratory Rate 16 02/27/17 15:34 Blood Pressure 148/86 H 02/27/17 15:34 O2 Sat (%) 95 02/27/17 15:34 O2 Delivery Mode Room Air Allergies/Adverse Reactions: aspirin Allergy (Verified 05/09/14 10:48) Penicillins Allergy (Verified 05/09/14 10:48) Home Medications: Medication Instructions Recorded Acetaminophen [Tylenol ES 500 mg 1,000 mg PO BID 11/02/15 (*)] Cholecalciferol Vit D3 [Vitamin D3 2,000 units PO BID 11/02/15 (*)] Cholestyramine (with Sugar) 4 gm PO DAILY 11/02/15 [Cholestyramine Packet] Cromolyn Sodium [Nasalcrom] 1 spray EACHNARE BID PRN 11/02/15 Denosumab [Prolia] 60 mg SQ Q180D 11/02/15 Fluticasone Hfa 44 Mcg [Flovent 44 2 puffs IH BID 11/02/15 MCG Hfa MDI (*)] Lisinopril [Zestril 10 mg (*)] 10 mg PO DAILY 11/02/15 Triamterene/Hydrochlorothiazid 1 each PO DAILY 11/02/15 [Triamterene-Hctz 37.5-25 mg Cp] Vit C/Vit E AC/Lut/Copper/Zinc 1 each PO BID 11/02/15 [Preservision Lutein Softgel] Famotidine [Pepcid 20 MG (*)] 20 mg PO BID #60 tab 11/04/15 metFORMIN HCL [Metformin HCl] 250 mg PO DAILY 08/15/16 Benzonatate [Tessalon Pearles] 100 mg PO TID PRN #21 cap 08/21/16 predniSONE 20 mg PO DAILY #5 tablet 08/21/16 Flovent Hfa 02/27/17 Medical Decision Making - Diagnostics Imaging Results: CT scan of the brain read by the radiologist: NE[facility] ED Course/Re-evaluation: 15:29 [facility] at bedside. 87 year old female presents with 2mm posterior scalp laceration following a mechanical fall earlier today. She has some tenderness to the left lateral aspect of her neck, full range of motion but no midline tenderness. Physical exam otherwise unremarkable. She is neurologically intact. Plan for CT head due to age and mechanism. 16:[address] Grossman, radiologist. CT negative for acute processes, shows small parietal scalp hematoma. Plan to discharge home in good condition. Follow up and return precautions discussed. The patient is comfortable with this plan. Differential Diagnosis: includes though not limited to ICH, fx, PTX, hemorrhage Departure - Departure Disposition: Home, Routine, Self-Care Clinical Impression: Head injury Qualifiers: Encounter type: initial encounter Qualified Code(s): S09.90XA - Unspecified injury of head, initial encounter Scalp laceration Qualifiers: Encounter type: initial encounter Qualified Code(s): S01.01XA - Laceration without foreign body of scalp, initial encounter Condition: Good Instructions: Head Injury (ED) Additional Instructions: 1. Follow-up with your primary doctor this week for continued evaluation of symptoms. 2. Return to the Emergency Department for severe headache, vomiting, vision changes, confusion, fever or other concerns. Referrals: Stella Preciado MD [Medical Doctor] - As per Instructions Report Scribed for: Jasmin Rudd Report Scribed by: Catalina Burns Date of Report: 02/27/17 Time of Report: 15:28 Physician Review and Approval Statement: 02/27/17 15:28 Portions of this note were transcribed by a medical record coder. I personally performed a history, physical exam, medical decision making, and confirmed accuracy of information the transcribed note.
[2017-02-27 15:37] VITALS: RESP 16
[2017-02-27 16:47] VITALS: BP 131/80; PULSE 84; TEMP 97.7; O2SAT 94
== END 2017-02-27 16:42 | disposition home or self-care (01) ==
LOC: EDUNIT#
DX: S01.01XA Laceration without foreign body of scalp, initial encounter (principal); I10 Essential (primary) hypertension; E11.9 Type 2 diabetes mellitus without complications; J45.909 Unspecified asthma, uncomplicated; Z79.84 Long term (current) use of oral hypoglycemic drugs; W01.198A Fall on same level from slipping, tripping and stumbling with subsequent striking against other object, initial encounter; Y99.8 Other external cause status; Y93.89 Activity, other specified

== ENCOUNTER → 2018-01-11 | Outpatient (CLI) | payer OTHER | LOC: FIMAGING 10:14 | PROVIDERS: ATTEND Internal Medicine Rheumatology | DX: Z13.820 Encounter for screening for osteoporosis (principal); M85.89 Other specified disorders of bone density and structure, multiple sites ==

== ENCOUNTER → 2018-03-26 | Outpatient (CLI) | payer OTHER | PROVIDERS: ATTEND Internal Medicine | DX: R13.13 Dysphagia, pharyngeal phase (principal); K22.2 Esophageal obstruction; K21.9 Gastro-esophageal reflux disease without esophagitis; K44.9 Diaphragmatic hernia without obstruction or gangrene | CPT/HCPCS: 74220; 74230; 92611; G8996; G8997; G8998 ==